=== PATIENT | female | born 1960 | race Caucasian/White ===

== ENCOUNTER 2019-02-19 02:36 | Emergency (ER) | payer MEDICAID ==
[~2019-02-19] VITALS: Ht 170.2 cm; Wt 63.6 kg
[2019-02-19 04:30] VITALS: BP 125/46
[2019-02-19 05:23] LABS: BASOPHILS % (AUTO) 0.3 % (0-1); EOSINOPHILS % (AUTO) 0.1 % (0-6); HEMATOCRIT 40.4 % (35.0-45.0); HEMOGLOBIN 13.4 g/dl (12.0-16.0); LYMPHOCYTES # (AUTO) 0.7 X10'3 (1.1-4.8); LYMPHOCYTES % (AUTO) 6.8 % (21-51); MEAN CORPUSCULAR HEMOGLOBIN 29.9 PG (27.0-31.0); MEAN CORPUSCULAR HGB CONC 33.1 g/dL (33.0-36.5); MEAN CORPUSCULAR VOLUME 90.2 FL (78-98); MEAN PLATELET VOLUME 9.9 FL (7.4-10.4); MONOCYTES # (AUTO) 0.7 X10'3 (0-0.9); MONOCYTES % (AUTO) 6.3 % (2-12); NEUTROPHILS # (AUTO) 9.2 X10'3 (1.8-7.7); NEUTROPHILS % (AUTO) 86.5 % (42-75); PLATELET COUNT 193 X10'3 (140-440); RED BLOOD COUNT 4.48 X10'6 (4.20-5.60); RED CELL DISTRIBUTION WIDTH 14.4 % (11.5-14.5); WHITE BLOOD COUNT 10.6 X10'3 (4.5-11.0)
[2019-02-19 05:36] LABS: ALANINE AMINOTRANSFERASE 68 U/L (12-78); ALBUMIN 3.2 G/DL (3.4-5.0); ALKALINE PHOSPHATASE 69 IU/L (46-116); ANION GAP 10 (8-16); ASPARTATE AMINO TRANSFERASE 69 U/L (10-37); BILIRUBIN,TOTAL 0.6 MG/DL (0.1-1.0); BLOOD UREA NITROGEN 16 MG/DL (7-18); BUN/CREATININE RATIO 28.1 (6.6-38.0); CALCIUM 8.5 MG/DL (8.5-10.1); CHLORIDE 105 MMOL/L (99-107); CREATININE 0.57 MG/DL (0.40-0.90); GLUCOSE 74 MG/DL (70-104); POTASSIUM 3.3 MMOL/L (3.5-5.1); SODIUM 138 MMOL/L (135-145); TOTAL PROTEIN 6.4 G/DL (6.4-8.2); eGFR > 90 ML/MIN
[2019-02-19 05:45] LABS: ETHANOL < 0.010 GM/DL (0.0-0.010)
[2019-02-19 06:01] LABS: ACETAMINOPHEN < 2.0 UG/ML (10-30)
--- NOTE | 2019-02-19 06:01 | NUR ---
APPLIED KEVAN BUSTOS TO PT WHEN SHE GOT INTO ROOM, TEMP IS UP TO 97
--- NOTE | 2019-02-19 06:40 | NUR ---
pt is not in her room, not on unit. security notified, charge nurse aware
--- NOTE | 2019-02-19 09:10 | NUR ---
shirin notified that pt left the hospital, brief description given.
== END 2019-02-19 09:30 | disposition left against medical advice (07) ==
LOC: ER 02:37
DX: R45.851 Suicidal ideations (principal); Z59.0 Homelessness; Z56.0 Unemployment, unspecified
CPT/HCPCS: 36415; 80053; 80320; 80329; 84443; 85025; 99284

== ENCOUNTER 2019-05-27 08:07 | Inpatient (IN) | payer MEDICAID ==
[~2019-05-27] VITALS: Ht 170.2 cm; Wt 70.2 kg
[2019-05-27] MEDS ORDERED: loperamide 2mg capsule PO PRN (08:35)
[2019-05-27] MEDS ORDERED: acetaminophen 325mg tablet PO PRN ×2 (08:35)
[2019-05-27] MEDS ORDERED: mag hydrox/Alum hydrox/simeth 30ml oral suspension PO PRN (08:35)
[2019-05-27] MEDS ORDERED: tuberculin, purif. prot. deriv. 5 units/0.1ml ID ONE (08:35)
[2019-05-27] MEDS ORDERED: hydrOXYzine 25 MG tablet PO PRN (08:35)
[2019-05-27] MEDS ORDERED: LORazepam 1 MG tablet PO PRN (08:35)
[2019-05-27] MEDS ORDERED: NO HOME MEDS PO (08:48)
[2019-05-27 09:19] VITALS: BP 151/85
--- NOTE | 2019-05-27 09:31 | NUR ---
Admission note: This 58 year old female was admitted from [facility] at 0800 hours this am. She arrived in custody of two officers, was searched and wanded for security before allowed on unit. Contreras skin check was performed with no significant findings. Client belongings were searched by [facility] as client claims to be missing a "valuable" ring which was located on initial or secondary search. Client was notified that no ring was located. Vital signs upon admission were, BP 151/84. P= 98, R= 16 and o2 sats were 97% on room air. Client was alert and oriented and was compliant with admission process. Unit orientation provided by staff. Initial nursing assessments are complete. Waiting fo PPD inj. from Pharmacy at this time. Client has no somatic complaints and verbalizes an understanding of all information presented.
--- NOTE | 2019-05-27 13:23 | NUR ---
Nursing Progress note: Client has been social on unit with both staff and peers since admission this am. Patient has required no prn medication as of this writing and seems adjusted to the unit and surroundings. No S/I, H/I, hallucinations or delusions present. Upon 1;1 interview this afternoon, client states that she is doing very well on the unit and feels safe. Client stated, "I just need to pay respect and they will too".
[2019-05-27 20:14] VITALS: BP 120/94
--- NOTE | 2019-05-27 21:29 | NUR ---
Nursing Progress Note:[] Client has been social on unit with both staff and peers since admission this am. Patient has required no prn medication as of this writing and seems adjusted to the unit and surroundings. No S/I, H/I, hallucinations or delusions present. Upon 1;1 interview this afternoon, client states that she is doing very well on the unit and feels safe. Client stated, "I just need to pay respect and they will too". Legal hold:[1370] Client on voluntary/involuntary status for GD Report received from Sofia WILLS nurse with use of SBAR[]. Why are they here:[]. This 58 year old female was admitted from [facility] at 0800 hours this am. She arrived in custody of two officers, was searched and wanded for security before allowed on unit. Contreras skin check was performed with no significant findings. Client belongings were searched by [employer] as client claims to be missing a "valuable" ring which was located on initial or secondary search. Client was notified that no ring was located. Vital signs upon admission were, BP 151/84. P= 98, R= 16 and o2 sats were 97% on room air. Client was alert and oriented and was compliant with admission process. Unit orientation provided by staff. Initial nursing assessments are complete. Waiting fo PPD inj. from Pharmacy at this time. Client has no somatic complaints and verbalizes an understanding of all information presented. Assessment What has happened this shift: Patient isolated to her room this shift. She is social with her room mate S/I, H/I: Denies A/VH: Denies Sleep:[] ADL's: ind Group attendance:[] Were meds taken:No Any med S/E[] Mental Status Exam Appearance:kempt Eye contact:good Behavior: Guarded Speech: Normal Mood: Blunted Affect: Flat Thought process: congruent Thought Content; Cognition:[] Insight: Fair Judgment:Fair Interventions PRN's used:[] Therapeutic interventions:[] Restraints/seclusion/emergency medication:[] Justification of Continued Inpatient Treatment:Pt is GD unable to utilize the resources available to him. He is unable to provide himself with custodial, clothing, or food.
[2019-05-28 07:16] VITALS: BP 133/88
[2019-05-28 07:55] LABS: HEMOGLOBIN A1C 5.8 % (4.5-6.2)
[2019-05-28 08:09] LABS: ALANINE AMINOTRANSFERASE 31 U/L (12-78); ALBUMIN 3.9 G/DL (3.4-5.0); ALKALINE PHOSPHATASE 85 IU/L (46-116); ANION GAP 8 (8-16); ASPARTATE AMINO TRANSFERASE 22 U/L (10-37); BILIRUBIN,TOTAL 0.4 MG/DL (0.1-1.0); BLOOD UREA NITROGEN 15 MG/DL (7-18); BUN/CREATININE RATIO 24.2 (6.6-38.0); CALCIUM 9.1 MG/DL (8.5-10.1); CHLORIDE 108 MMOL/L (99-107); CHOL/HDL RATIO 2.6 (0.00-4.99); CHOLESTEROL 195 MG/DL (0-200); CREATININE 0.62 MG/DL (0.40-0.90); GLUCOSE 83 MG/DL (70-104); HDL CHOLESTEROL 76 MG/DL (35-60); LDL CHOLESTEROL 107 MG/DL (50-100); POTASSIUM 4.1 MMOL/L (3.5-5.1); SODIUM 143 MMOL/L (135-145); TOTAL CARBON DIOXIDE 26.7 MMOL/L (24-32); TOTAL PROTEIN 7.9 G/DL (6.4-8.2); TRIGLYCERIDES 62 MG/DL (20-135); eGFR > 90 ML/MIN
[2019-05-28 09:39] LABS: BASOPHILS % (AUTO) 0.6 % (0-1); EOSINOPHILS % (AUTO) 0.7 % (0-6); HEMATOCRIT 43.1 % (35.0-45.0); HEMOGLOBIN 14.4 g/dl (12.0-16.0); LYMPHOCYTES # (AUTO) 1.6 X10'3 (1.1-4.8); LYMPHOCYTES % (AUTO) 25.1 % (21-51); MEAN CORPUSCULAR HEMOGLOBIN 30.2 PG (27.0-31.0); MEAN CORPUSCULAR HGB CONC 33.3 g/dL (33.0-36.5); MEAN CORPUSCULAR VOLUME 90.6 FL (78-98); MEAN PLATELET VOLUME 10.5 FL (7.4-10.4); MONOCYTES # (AUTO) 0.5 X10'3 (0-0.9); MONOCYTES % (AUTO) 8.6 % (2-12); PLATELET COUNT 183 X10'3 (140-440); RED BLOOD COUNT 4.76 X10'6 (4.20-5.60); WHITE BLOOD COUNT 6.2 X10'3 (4.5-11.0)
[2019-05-28 10:05] LABS: LARGE PLATELETS FEW; PLATELET ESTIMATE NORMAL
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
[2019-05-28 20:00] VITALS: BP 148/76
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
[2019-05-29 07:24] VITALS: BP 119/84
--- NOTE | 2019-05-29 15:33 | NUR ---
NURSING PROGRESS NOTE Client on 1370 involuntary status for GD Report received from Angela WILLS with use of SBAR Why are they here: Ms. Squires is a 58 year old white woman, with a history of psychiatric illness, no acute substance or alcohol use issues who left her marriage of 33 years and came to [place] August 2018. "I was at the parking lot of [employer] [facility] just having come from [facility] and was driving slowly around [employer]'s parking lot. "I wasn't feeling safe". The delivery table operator followed her and she was taken to long term for 3 days. She was hoping to stay with her sister but for unclear reasons her sister asked her to leave and she was left with the mission. "The long term people told me I could get my cell phone at the latter-day so I went back to [place]" and [facility] asked her to leave but ultimately called the Police who took Ms. Squires back to long term. She recalls being jailed 5 times since coming to [place] (several were book and release). It was in February, "my sister had a restraining order and I am not very good with yardage" and I was put in [facility] from February till yesterday. She reports she went into her sister's yard and used the water to clean up. Likely mood, Bipolar d/o, questionably occult psychosis. Assessment What has happened this shift: The patient was up and about on the unit at change of shift. She reports sleeping well. She is "motherly" of her peers and helping others do various things. She is overly friendly and happy incongruent with her circumstances. She denies SI, HI, or any hallucinations. Talks of being hurt and disappointed in her sister and reports the unit to be a nice and safe place "to live." She attends all meals and groups and sometimes isolates to room. She has no scheduled medications and did not require any PRN today. She is incongruent and guarded when answering questions and minimizing her circumstances. No outward signs of psychosis ere seen today. S/I, H/I: Denies A/VH: Denies Sleep:none during the day ADL's: Good, self Group attendance: yes Were meds taken: None ordered Any med S/E: N/A Mental Status Exam Appearance: neat and clean Eye contact: good Behavior: Guarded Speech: Normal Mood: Blunted Affect: animated Thought process: linear Thought Content: feeling safe here Cognition: alert and oriented Insight: poor Judgment: poor Interventions PRN's used: None Therapeutic interventions: established rapport, 1:1 assessment, provided active listening, provided a safe and therapeutic environment, provided reassurance and education, maintained q15m safety checks. Restraints/seclusion/emergency medication: None Justification of Continued Inpatient Treatment: Pt is GD unable to utilize the resources available to her. She is unable to provide himself with jail, clothing, or food.
[2019-05-29 19:29] VITALS: BP 141/88
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
[2019-05-30 07:53] VITALS: BP 134/92
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
[2019-05-30 20:00] VITALS: BP 123/67
--- NOTE | 2019-05-30 23:22 | NUR ---
NURSING PROGRESS NOTE Client on 1370 involuntary status for GD Report received from JOHANN Hargrove with use of SBAR Why are they here: Ms. Squires is a 58 year old white woman, with a history of psychiatric illness, no acute substance or alcohol use issues who left her marriage of 33 years and came to [place] August 2018. "I was at the parking lot of [employer] just having come from [facility] and was driving slowly around [place]'s parking lot. "I wasn't feeling safe". The import/export freight forwarder followed her and she was taken to prison for 3 days. She was hoping to stay with her sister but for unclear reasons her sister asked her to leave and she was left with the [place]. "The prison people told me I could get my cell phone at the congregational so I went back to [place]" and [facility] asked her to leave but ultimately called the Police who took Ms. Squires back to prison. She recalls being jailed 5 times since coming to [place] (several were book and release). It was in February, "my sister had a restraining order and I am not very good with yardage" and I was put in prison from February until yesterday. She reports she went into her sister's yard and used the water to clean up. Likely mood, Bipolar d/o, questionably occult psychosis. Assessment What has happened this shift: Pt was sitting on bed listening to headphones and reading the Bible. Pt's smiled and waved. Pt was later up on the unit visiting with other peers. Pt is cooperative, but when asked any questions pt states "I really don't want to talk about anything right now." "I have been drilled 3 times today." When pushed pt gets a little irritated, pt's face becomes schrader and answerers short yes or no answers. Pt was asked what her [place] [facility] goals were "I want to get my own place and get back the things I lost." Pt disregards on how she plans on doing that. Pt states she can live with her son or a friend she knows in [place]. No specific delusional comments reported. S/I, H/I: Pt denies. None observed A/VH: Pt denies. None observed Sleep: Currently sleeping with no acute distress noted. ADL's: Independent Group attendance: clinic cma, no group Were meds taken: None ordered Any med S/E: N/A Mental Status Exam Appearance: Neat and clean Eye contact: Good Behavior: Cooperative, guarded Speech: Clear, normal rate and rhythm Mood: Pleasant Affect: Constricted with some brightening Thought process: Linear Thought Content: Tired of being "drilled about my life story" Cognition: Alert and oriented Insight: Poor Judgment: Poor Interventions PRN's used: None Therapeutic interventions: Established rapport, 1:1 assessment, provided active listening, provided a safe and therapeutic environment, provided reassurance and education, maintained q15m safety checks. Restraints/seclusion/emergency medication: None Justification of Continued Inpatient Treatment: Pt is GD unable to utilize the resources available to her. She is unable to provide himself with senior care, clothing, or food.
[2019-05-31 08:24] VITALS: BP 132/91
--- NOTE | 2019-05-31 15:25 | NUR ---
NURSING PROGRESS NOTE Client on 1370 involuntary status for GD Report received from JOHANN Aguilar with use of SBAR Why are they here: Ms. Squires is a 58 year old white woman, with a history of psychiatric illness, no acute substance or alcohol use issues who left her marriage of 33 years and came to [place] August 2018. "I was at the parking lot of [employer] just having come from [facility] and was driving slowly around [place] parking lot. "I wasn't feeling safe". The scale agent followed her and she was [facility]. She was hoping to stay with her sister but for unclear reasons her sister asked her to leave and she was left with the [facility]. "The [facility] people told me I could get my cell phone at the [facility] so I went back to [place]" and [facility] asked her to leave but ultimately called the Police who took Ms. Squires back to [facility]. She recalls being jailed 5 times since coming to [place] (several were book and release). It was in February, "my sister had a restraining order and I am not very good with yardage" and I was put in Shelter from February till yesterday. She reports she went into her sister's yard and used the water to clean up. Likely mood, Bipolar d/o, questionably occult psychosis. Assessment What has happened this shift: The patient was awake at change of shift. More subdued today with staff and peers yet still pleasant and smiling. Attended all groups and meals. did not want to talk much with nurse or answer questions. Seems to possibly, becoming more paranoid, avoiding eye contact and being evasive with nurse. Very good at hiding psychosis, but has disorganized thoughts (timelines, circimstances.) No scheduled meds no PRN's needed. S/I, H/I: Denies A/VH: Denies Sleep:none during the day ADL's: Good, self Group attendance: yes Were meds taken: None ordered Any med S/E: N/A Mental Status Exam Appearance: neat and clean Eye contact: good Behavior: WNL Speech: Normal Mood: Pleasant Affect: animated/ happy/ incongruent Thought process: linear Thought Content: feeling safe here Cognition: alert and oriented Insight: very poor Judgment: poor Interventions PRN's used: None Therapeutic interventions: established rapport, 1:1 assessment, provided active listening, provided a safe and therapeutic environment, provided reassurance and education, maintained q15m safety checks. Restraints/seclusion/emergency medication: None Justification of Continued Inpatient Treatment: Pt is GD unable to utilize the resources available to her. She is unable to provide himself with longterm, clothing, or food.
[2019-05-31 20:03] VITALS: BP 148/98
--- NOTE | 2019-05-31 22:37 | NUR ---
NURSING PROGRESS NOTE Client on 1370 involuntary status for GD Report received from JOHANN Hargrove with use of SBAR Why are they here: Ms. Squires is a 58 year old white woman, with a history of psychiatric illness, no acute substance or alcohol use issues who left her marriage of 33 years and came to [place] August 2018. "I was at the parking lot of [place] [employer] just having come from [facility] and was driving slowly around [place]'s parking lot. "I wasn't feeling safe". The shipyard supervisor followed her and she was taken to senior care for 3 days. She was hoping to stay with her sister but for unclear reasons her sister asked her to leave and she was left with the [place]. "The senior care people told me I could get my cell phone at the hinduism so I went back to [place]" and [facility] asked her to leave but ultimately called the Police who took Ms. Squires back to senior care. She recalls being jailed 5 times since coming to [place] (several were book and release). It was in February, "my sister had a restraining order and I am not very good with yardage" and I was put in senior care from February until yesterday. She reports she went into her sister's yard and used the water to clean up. Likely mood, Bipolar d/o, questionably occult psychosis. Assessment What has happened this shift: Pt was walking the halls listening to the headphones at shift change. Pt is seen talking with and helping comfort another pt. Pt has a nurturing quality and is seen on the unit with other patients. Pt avoided conversation with this RN several times. During 1:1 assessment pt opened up about her time in senior care, but would not talk about any personal stuff. Pt denies SI. Pt has no scheduled medications and no PRN's administered. S/I, H/I: Pt denies. None observed A/VH: Pt denies. None observed Sleep: Currently sleeping with no acute distress noted. 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 Cognition: Alert and oriented Insight: Poor Judgment: Poor Interventions PRN's used: None Therapeutic interventions: 1:1 assessment, provided active listening, provided a safe and therapeutic environment, provided reassurance and education, maintained q15m safety checks. Restraints/seclusion/emergency medication: None Justification of Continued Inpatient Treatment: Pt is GD unable to utilize the resources available to her. She is unable to provide himself with long term, clothing, or food.
[2019-06-01 07:50] VITALS: BP 118/79
--- NOTE | 2019-06-01 16:44 | NUR ---
NURSING PROGRESS NOTE: Heydi Squires Client on 1370 involuntary status for GD Report received from JOHANN Aguilar with use of SBAR Why are they here: Ms. Squires is a 58 year old white woman, with a history of psychiatric illness, no acute substance or alcohol use issues who left her marriage of 33 years and came to [place] August 2018. "I was at the parking lot of [employer] just having come from [facility] and was driving slowly around [place]'s parking lot. "I wasn't feeling safe". The carbider followed her and she was taken to senior care for 3 days. She was hoping to stay with her sister but for unclear reasons her sister asked her to leave and she was left with the [place]. "The senior care people told me I could get my cell phone at the buddhist so I went back to [place]" and [place] security asked her to leave but ultimately called the Police who took Ms. Squires back to senior care. She recalls being jailed 5 times since coming to [place] (several were book and release). It was in February, "my sister had a restraining order and I am not very good with yardage" and I was put in senior care from February until yesterday. She reports she went into her sister's yard and used the water to clean up. Likely mood, Bipolar d/o, questionably occult psychosis. Assessment What has happened this shift: Pt. Was up in community room at change of shift. Positive response to this bid writer when introducing myself. Conversation focused on how appreciative she is to have our unit and staff to care for those in crisis. Remained engaged in conversation with others on the unit. No outward signs of paranoia, anxiety, nor depression. When asked why she is here, patient responds "they want to know if I am stable." According to patient was previously diagnosed and treated for schizophrenia. She stopped taking medication in 2016. Patient is helpful with other clients on the unit showing compassion to each person. S/I, H/I: Pt denies. A/VH: Pt denies. Sleep: 6.25 ADL's: Independent Group attendance: Yes Were meds taken: No scheduled medications Any med S/E: N/A Mental Status Exam Appearance: Neat and clean Eye contact: Good Behavior: Cooperative, guarded Speech: Clear, normal rate and rhythm Mood: Pleasant Affect: Congruent with mood Thought process: Linear Thought Content: Cognition: Alert and oriented Insight: Poor Judgment: Poor Interventions PRN's used: None Therapeutic interventions: 1:1 assessment, provided active listening, provided a safe and therapeutic environment, provided reassurance and education, maintained q15m safety checks. Restraints/seclusion/emergency medication: None Justification of Continued Inpatient Treatment: Pt is GD unable to utilize the resources available to her. She is unable to provide himself with detention, clothing, or food.
[2019-06-01 19:55] VITALS: BP 139/83
--- NOTE | 2019-06-01 21:35 | NUR ---
NURSING PROGRESS NOTE: Heydi Squires Client on 1370 involuntary status for GD Report received from JOHANN Hargrove with use of SBAR Why are they here: Ms. Squires is a 58 year old white woman, with a history of psychiatric illness, no acute substance or alcohol use issues who left her marriage of 33 years and came to [place] August 2018. "I was at the parking lot of [employer] just having come from [facility] and was driving slowly around [employer]'s parking lot. "I wasn't feeling safe". The acute care clinical nurse specialist followed her and she was taken to snf for 3 days. She was hoping to stay with her sister but for unclear reasons her sister asked her to leave and she was left with the [place]. "The snf people told me I could get my cell phone at the latter day so I went back to [place]" and [facility] security asked her to leave but ultimately called the Police who took Ms. Squires back to snf. She recalls being jailed 5 times since coming to [place] (several were book and release). It was in February, "my sister had a restraining order and I am not very good with yardage" and I was put in snf from February until yesterday. She reports she went into her sister's yard and used the water to clean up. Likely mood, Bipolar d/o, questionably occult psychosis. Assessment What has happened this shift: Pt. Was up in room at change of shift. Positive response to this bid writer when introducing myself. Conversation focused on how appreciative she is to have our unit and staff to care for those in crisis. Remained engaged in conversation with others on the unit. No outward signs of paranoia, anxiety, nor depression. When asked why she is here, patient responds "they want to know if I am stable." According to patient was previously diagnosed and treated for schizophrenia. She stopped taking medication in 2016. Patient up and social with peers and staff helpful and caring with others. S/I, H/I: Pt denies. A/VH: Pt denies. Sleep: 6.25 ADL's: Independent Group attendance: Yes Were meds taken: No scheduled medications Any med S/E: N/A Mental Status Exam Appearance: Neat and clean Eye contact: Good Behavior: Cooperative, guarded Speech: Clear, normal rate and rhythm Mood: Pleasant Affect: Congruent with mood Thought process: Linear Thought Content: Cognition: Alert and oriented Insight: Poor Judgment: Poor Interventions PRN's used: None Therapeutic interventions: 1:1 assessment, provided active listening, provided a safe and therapeutic environment, provided reassurance and education, maintained q15m safety checks. Restraints/seclusion/emergency medication: None Justification of Continued Inpatient Treatment: Pt is GD unable to utilize the resources available to her. She is unable to provide himself with alf, clothing, or food.
[2019-06-02 08:38] VITALS: BP 148/77
--- NOTE | 2019-06-02 10:58 | NUR ---
Initial: Pt admit w/ psychosis PO 100% regular diet meeting needs. LB 05/30. No nutrition concerns at this time. Addendum: 06/02/19 at [address] Amended: Links added.
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
[2019-06-02 20:00] VITALS: BP_SYST 135; BP_SYST 143; BP_DIAS 83; BP_DIAS 85
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
[2019-06-03 07:58] VITALS: BP 125/84
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
[2019-06-03 20:00] VITALS: BP 157/95
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
[2019-06-04 07:36] VITALS: BP 132/90
[2019-06-04] MEDS ORDERED: haloperidol 10mg/5ml UD oral solution PO PRN (12:30)
[2019-06-04] MEDS ORDERED: LORazepam 1 MG tablet PO ONE (12:30)
[2019-06-04] MEDS ORDERED: haloperidol 10mg/5ml UD oral solution PO ONE (12:30)
[2019-06-04] MEDS ORDERED: LORazepam 1 MG tablet PO PRN (12:30)
[2019-06-04] MEDS ORDERED: LORazepam 2 mg/ml vial IM ONE (13:45)
[2019-06-04] MEDS ORDERED: haloperidol lactate 5mg/ml inj IM ONE (13:45)
--- NOTE | 2019-06-04 15:31 | NUR ---
RN received phone call from pts daughter Olena ([phone]) She reports pts first psychotic break was in 1992, she was hospitalized in [place] for 6 months and dx with Bipolar with psychotic features. During her 1992 hospital stay she was prescribed Haldol which she took for 24 years. 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 Her last hospitalization was January 2018 and she stayed for 3wks. Shortly after discharge she became non-med compliant and did not f/u with care providers leading to multiple incarcerations. Daughter believes they prescribed her Abilify during her last hospitalization. Daughter reports that her mother rarely saw the psychiatrist (once per year) and that medications were often just renewed. She stated that her mother c/o poor sleep with Haldol so she self D/C'd it. After she left her she appeared to have significant issues with feeling controlled as she felt controlled in her relationship with him. Daughter believes it is in the patients best interest to block all communication with ex Wilson Squires.
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
[2019-06-04 20:00] VITALS: BP 143/89
[2019-06-04] MEDS: haloperidol 10mg/5ml UD oral solution PO SCH (20:07)
[2019-06-04] MEDS: LORazepam 1 MG tablet PO SCH (20:07)
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
[2019-06-05 07:38] VITALS: BP 136/87
[2019-06-05] MEDS: haloperidol 10mg/5ml UD oral solution PO SCH ×2 (08:01→20:26)
[2019-06-05] MEDS: LORazepam 1 MG tablet PO SCH ×2 (08:01→20:24)
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
[2019-06-05 20:35] VITALS: BP 134/78
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
[2019-06-06 08:00] VITALS: BP 132/85
[2019-06-06] MEDS: LORazepam 1 MG tablet PO SCH ×2 (08:15→21:26)
[2019-06-06] MEDS: haloperidol 10mg/5ml UD oral solution PO SCH ×2 (08:15→21:26)
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
[2019-06-06 20:00] VITALS: BP 139/87
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
[2019-06-07 07:37] VITALS: BP 141/85
[2019-06-07] MEDS: haloperidol 10mg/5ml UD oral solution PO SCH ×2 (07:57→21:21)
[2019-06-07] MEDS: LORazepam 1 MG tablet PO SCH ×2 (07:57→21:20)
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
[2019-06-07 20:00] VITALS: BP 122/86
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
[2019-06-08 07:36] VITALS: BP 128/79
[2019-06-08] MEDS: LORazepam 1 MG tablet PO SCH ×2 (08:48→20:19)
[2019-06-08] MEDS: haloperidol 10mg/5ml UD oral solution PO SCH ×2 (08:50→20:19)
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
[2019-06-08 19:11] VITALS: BP 130/80
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
[2019-06-09 07:22] VITALS: BP 117/84
--- NOTE | 2019-06-09 07:40 | NUR ---
DISCHARGE PLANNING: Pt completed CLAUDIA for communication regarding discharge planning with Ingrid Ortega . SW will contact Ingrid for discharge planning later in the day.
[2019-06-09] MEDS: haloperidol 10mg/5ml UD oral solution PO SCH ×2 (07:43→20:27)
[2019-06-09] MEDS: LORazepam 1 MG tablet PO SCH ×2 (07:43→20:27)
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
[2019-06-09 19:49] VITALS: BP 130/80
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
[2019-06-10 07:23] VITALS: BP 130/78
[2019-06-10] MEDS: LORazepam 1 MG tablet PO SCH ×2 (07:56→20:21)
[2019-06-10] MEDS: haloperidol 10mg/5ml UD oral solution PO SCH ×2 (07:59→20:21)
--- NOTE | 2019-06-10 12:24 | NUR ---
reassessment: Pt PO 100% regular diet meeting needs. LBM 06/08. No nutrition concerns at this time. Addendum: 06/10/19 at [address] Amended: Links added.
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
--- NOTE | 2019-06-10 15:18 | NUR ---
1:1 DISCHARGE PLANNING: SW met w/ pt to discuss possible discharge to her daughter's home in [place]. Pt reports interest, however states she is concerned that she will not be able to complete legal needs if she leaves [place]. SW informed pt of court ability to have persons appear by phone or video conference. Pt states she will consider this. SW contacted Dr. Lockwood at [facility] to provide possible support system and aftercare treatment for the courts notification. SW requested return contact. Felicita East, Manager Msw [employer] [id number] Supervised by Vini Gaines, [id number]
[2019-06-10 19:18] VITALS: BP 117/93
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
[2019-06-11 07:42] VITALS: BP 120/78
[2019-06-11] MEDS: LORazepam 1 MG tablet PO SCH ×2 (07:55→21:15)
[2019-06-11] MEDS: haloperidol 10mg/5ml UD oral solution PO SCH ×2 (07:57→21:13)
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
[2019-06-11 19:57] VITALS: BP 130/78
[2019-06-11 20:02] VITALS: BP 129/85
--- NOTE | 2019-06-11 20:05 | NUR ---
emsheree 195 VS; correction made 2001
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
--- NOTE | 2019-06-12 08:08 | NUR ---
COLLATERAL/DC PLANNING: SW received return contact from Dr. Lockwood, who reports pt will continue to be worked w/ for [facility] to competency. He reports charges will likely be dismissed once she is restored to competence, then w/ coordination and request by pt a referral can be made to the [facility] to allow a buffer for discharge coordination w/ pt's daughter. If pt were to stay at the [facility] after release from correction it would provide time for pt's daughter to gain access to a plane ticket and assist pt in going to [place] where she has support. SW will inform provider and team of potential collaboration/coordination for pt needs. Per Dr. Lockwood, pt will be evaluated by Dr. Patricia at least one more time before she can be deemed competent. Felicita East, Music Instructor [facility] [id number] Supervised by Vini Gaines, [id number] Addendum: 06/12/19 at 0826 by Felicita East SS Addition to note: Pt's daughter, Ingrid at [phone], reports pt has agreed to come to her home in [place] and begin to re-establish her life. MANDI explained to Ingrid that coordination would need to occur w/ [facility] and [facility], however agreed to coordinate as best this abstract writer can prior to discharge to correction. Felicita East, Music Instructor [employer] WORK[employer] [id number] Supervised by Vini Gaines, [id number] Addendum: 06/12/19 at 1348 by Felicita East SS Addition: Pt signed CLAUDIA for [facility] Delivery Merchandiser. SW contacted Ms. Givens from the Delivery Merchandiser Office, requesting a return contact. End.
[2019-06-12] MEDS: haloperidol 10mg/5ml UD oral solution PO SCH ×2 (08:42→20:12)
[2019-06-12] MEDS: LORazepam 1 MG tablet PO SCH ×2 (08:43→20:09)
[2019-06-12 08:54] VITALS: BP 105/69
[2019-06-12] MEDS ORDERED: benztropine 1mg tablet PO ONE (09:35)
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
[2019-06-12 19:39] VITALS: BP 112/83
[2019-06-12] MEDS: benztropine 1mg tablet PO SCH (20:07)
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
[2019-06-13 08:00] VITALS: BP 117/71
[2019-06-13] MEDS: benztropine 1mg tablet PO SCH ×2 (08:47→20:11)
[2019-06-13] MEDS: LORazepam 1 MG tablet PO SCH ×2 (08:47→20:11)
[2019-06-13] MEDS: haloperidol 10mg/5ml UD oral solution PO SCH ×2 (08:47→20:13)
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
[2019-06-13 19:56] VITALS: BP 128/80
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
[2019-06-14] MEDS: haloperidol 10mg/5ml UD oral solution PO SCH ×2 (07:48→20:16)
[2019-06-14] MEDS: LORazepam 1 MG tablet PO SCH ×2 (07:49→20:16)
[2019-06-14] MEDS: benztropine 1mg tablet PO SCH ×2 (07:49→20:16)
[2019-06-14 08:00] VITALS: BP 99/61
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
[2019-06-14 20:00] VITALS: BP 124/81
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
[2019-06-15 08:00] VITALS: BP 129/69
[2019-06-15] MEDS: benztropine 1mg tablet PO SCH ×2 (08:43→20:29)
[2019-06-15] MEDS: haloperidol 10mg/5ml UD oral solution PO SCH ×2 (08:44→20:29)
[2019-06-15] MEDS: LORazepam 1 MG tablet PO SCH ×2 (08:44→20:30)
--- NOTE | 2019-06-15 14:30 | NUR ---
DISCHARGE PLANNING: SW received TC from pt's daughter, Ingrid, who reports she has purchased plane tickets to attend pt court hearing and fly pt back to [place] once released from [facility] custody. She states she has linked pt to [facility] for mental health tx and plans to write up a contract regarding tx, once pt returns to her home w/ her. SW agreed to inform [facility] of this plan and the tx team at [facility]. Felicita East, Knowledge Management Consultant CUSTOMER SUCCESS INTERN [id number] Supervised by Vini Gaines, [id number]
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
[2019-06-15 19:57] VITALS: BP 123/80
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
[2019-06-16 07:36] VITALS: BP 99/66
[2019-06-16] MEDS: LORazepam 1 MG tablet PO SCH ×2 (08:41→20:46)
[2019-06-16] MEDS: benztropine 1mg tablet PO SCH ×2 (08:42→20:47)
[2019-06-16] MEDS: haloperidol 10mg/5ml UD oral solution PO SCH ×2 (08:43→20:47)
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
[2019-06-16 20:01] VITALS: BP 128/78
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
[2019-06-17 07:36] VITALS: BP 104/66
[2019-06-17] MEDS: haloperidol 10mg/5ml UD oral solution PO SCH ×2 (08:18→20:47)
[2019-06-17] MEDS: benztropine 1mg tablet PO SCH ×2 (08:18→20:47)
[2019-06-17] MEDS: LORazepam 1 MG tablet PO SCH ×2 (08:18→20:47)
--- NOTE | 2019-06-17 15:17 | NUR ---
reassessment: Pt PO 75-100% regular diet meeting needs. LBM 06/17. No nutrition concerns at this time. Recommend: 1. continue regular diet 2. weekly wts Addendum: 06/17/19 at [address] Amended: Links added.
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
[2019-06-17 20:00] VITALS: BP 119/85
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
[2019-06-18 08:00] VITALS: BP 114/64
[2019-06-18] MEDS: haloperidol 10mg/5ml UD oral solution PO SCH ×2 (08:26→20:45)
[2019-06-18] MEDS: benztropine 1mg tablet PO SCH ×2 (08:26→20:45)
[2019-06-18] MEDS: LORazepam 1 MG tablet PO SCH ×2 (08:26→20:45)
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
[2019-06-18 19:41] VITALS: BP 122/76
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
[2019-06-19 07:52] VITALS: BP 105/77
[2019-06-19] MEDS: LORazepam 1 MG tablet PO SCH (08:07)
[2019-06-19] MEDS: benztropine 1mg tablet PO SCH ×2 (08:08→20:07)
[2019-06-19] MEDS: haloperidol 10mg/5ml UD oral solution PO SCH ×2 (08:08→20:07)
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
[2019-06-19 19:00] VITALS: BP 147/79
[2019-06-19] MEDS: LORazepam 0.5 MG tablet PO SCH (20:07)
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
[2019-06-20 07:57] VITALS: BP 115/81
[2019-06-20] MEDS: LORazepam 0.5 MG tablet PO SCH ×2 (08:25→20:16)
[2019-06-20] MEDS: benztropine 1mg tablet PO SCH ×2 (08:25→20:16)
[2019-06-20] MEDS: haloperidol 10mg/5ml UD oral solution PO SCH ×2 (08:26→20:17)
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
[2019-06-20 19:00] VITALS: BP 128/83
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
[2019-06-21 07:31] VITALS: BP 120/67
[2019-06-21] MEDS: benztropine 1mg tablet PO SCH ×2 (08:18→20:22)
[2019-06-21] MEDS: LORazepam 0.5 MG tablet PO SCH ×2 (08:18→20:22)
[2019-06-21] MEDS: haloperidol 10mg/5ml UD oral solution PO SCH ×2 (08:18→20:22)
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
[2019-06-21 19:40] VITALS: BP 111/79
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
[2019-06-22 08:00] VITALS: BP 115/67
[2019-06-22] MEDS: haloperidol 10mg/5ml UD oral solution PO SCH ×2 (08:11→20:36)
[2019-06-22] MEDS: LORazepam 0.5 MG tablet PO SCH ×2 (08:11→20:35)
[2019-06-22] MEDS: benztropine 1mg tablet PO SCH ×2 (08:11→20:35)
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
[2019-06-22 19:44] VITALS: BP 112/71
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
[2019-06-23 07:35] VITALS: BP 117/80
[2019-06-23] MEDS: LORazepam 0.5 MG tablet PO SCH ×2 (08:20→20:32)
[2019-06-23] MEDS: benztropine 1mg tablet PO SCH ×2 (08:20→20:32)
[2019-06-23] MEDS: haloperidol 10mg/5ml UD oral solution PO SCH ×2 (08:20→20:32)
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
[2019-06-23 20:24] VITALS: BP 120/83
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
[2019-06-24 07:22] VITALS: BP 114/74
[2019-06-24] MEDS: benztropine 1mg tablet PO SCH ×2 (08:14→20:32)
[2019-06-24] MEDS: LORazepam 0.5 MG tablet PO SCH ×2 (08:14→20:32)
[2019-06-24] MEDS: haloperidol 10mg/5ml UD oral solution PO SCH (08:14)
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
[2019-06-24] MEDS: haloperidol 1mg tablet PO SCH (20:32)
[2019-06-24 20:48] VITALS: BP 125/68
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
[2019-06-25 07:00] VITALS: BP 104/73
[2019-06-25 08:00] VITALS: BP 104/73
[2019-06-25] MEDS: LORazepam 0.5 MG tablet PO SCH ×2 (08:39→20:03)
[2019-06-25] MEDS: haloperidol 1mg tablet PO SCH ×2 (08:39→20:03)
[2019-06-25] MEDS: benztropine 1mg tablet PO SCH ×2 (08:39→20:03)
--- NOTE | 2019-06-25 15:14 | NUR ---
reassessment: Pt PO 75-100% regular diet meeting needs. LBM 06/24, smear for past two days, patient does have milk of donnell bedoya, not given yet, attempted call to RN regarding BM. Will continue to follow. Recommend: 1. continue regular diet 2. weekly wts 3. bowel care as needed. Addendum: 06/25/19 at [address] Amended: Links added.
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
[2019-06-25 20:27] VITALS: BP 107/80
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
[2019-06-26 08:00] VITALS: BP 113/64
[2019-06-26] MEDS ORDERED: haloperidol 10mg/5ml UD oral solution PO SCH ×2 (08:08→08:14)
[2019-06-26] MEDS: LORazepam 0.5 MG tablet PO SCH ×2 (08:53→20:48)
[2019-06-26] MEDS: benztropine 1mg tablet PO SCH ×2 (08:53→20:49)
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
[2019-06-26 19:49] VITALS: BP 124/77
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
[2019-06-27] MEDS: aripiprazole 5mg tablet PO SCH (08:16)
[2019-06-27] MEDS: benztropine 1mg tablet PO SCH ×2 (08:16→20:35)
[2019-06-27] MEDS: LORazepam 0.5 MG tablet PO SCH ×2 (08:16→20:35)
[2019-06-27 08:46] VITALS: BP 122/74
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
[2019-06-27 19:24] VITALS: BP 124/75
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
[2019-06-28 08:27] VITALS: BP 105/66
[2019-06-28] MEDS: LORazepam 0.5 MG tablet PO SCH ×2 (08:31→20:15)
[2019-06-28] MEDS: benztropine 1mg tablet PO SCH ×2 (08:31→20:15)
[2019-06-28] MEDS: aripiprazole 5mg tablet PO SCH (08:32)
[2019-06-28 19:49] VITALS: BP 124/75
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
[2019-06-29 07:40] VITALS: BP 112/72
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
[2019-06-29] MEDS: benztropine 1mg tablet PO SCH ×2 (08:16→20:24)
[2019-06-29] MEDS: LORazepam 0.5 MG tablet PO SCH ×2 (08:16→20:24)
[2019-06-29] MEDS: aripiprazole 5mg tablet PO SCH (08:16)
[2019-06-29 19:56] VITALS: BP 118/67
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
[2019-06-30 08:00] VITALS: BP 106/60
[2019-06-30] MEDS: aripiprazole 5mg tablet PO SCH (08:42)
[2019-06-30] MEDS: benztropine 1mg tablet PO SCH (08:43)
[2019-06-30] MEDS: LORazepam 0.5 MG tablet PO SCH ×2 (08:43→20:36)
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
[2019-06-30 20:22] VITALS: BP 119/72
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
[2019-07-01] MEDS: magnesium hydroxide 30ml (MOM) UD suspension PO PRN (04:59)
--- NOTE | 2019-07-01 04:59 | NUR ---
pt awake walking the halls. pt. requesting MOM.
[2019-07-01 07:33] VITALS: BP 125/70
[2019-07-01] MEDS: LORazepam 0.5 MG tablet PO SCH ×2 (08:25→19:54)
[2019-07-01] MEDS: aripiprazole 5mg tablet PO SCH (08:25)
[2019-07-01] MEDS: benztropine 1mg tablet PO SCH (08:26)
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
[2019-07-01 20:24] VITALS: BP 118/79
--- NOTE | 2019-07-01 23:20 | NUR ---
Nursing Progress Note: One to one with the patient to assess severity of disordered thought processes. She has been on q 15 minute safety checks and has not demonstrated any bizarre or disruptive behaviors on the unit. She was very friendly when approached for the evening the assessment. She appeared calm and she was well groomed and appropriately dressed. She reports that she slept well last night. She was asked about side effects to medications and she stated that she felt she was slightly constipated but had had a small bowel movement earlier in the day. She denies any thoughts to harm herself or others. She denies psychotic symptoms and none were evident during during the evening assessment. She reports her concentration and focus were "not bad" She denies racing thoughts. She denies anxiety. She reports that her mood is good. She stated that she feels ready to go to court. She stated that after clearing up her court matters she will be moving to [place] to live with her daughter. She socializes well with peers.
--- NOTE | 2019-07-02 08:10 | NUR ---
COURT 07/04 AT 0830. WILL BE PICKED UP BY [facility]. PH NUMBER [phone]. PATIENT NEEDS TO BE FULLY DC'D, WILL BE GOING W/DAUGHTER OUT OF STATE AFTER COURT.
[2019-07-02 08:15] VITALS: BP 141/75
[2019-07-02] MEDS: LORazepam 0.5 MG tablet PO SCH ×2 (08:26→19:58)
[2019-07-02] MEDS: aripiprazole 5mg tablet PO SCH (08:26)
[2019-07-02] MEDS: benztropine 1mg tablet PO SCH (08:26)
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
[2019-07-02] MEDS: magnesium hydroxide 30ml (MOM) UD suspension PO PRN (19:06)
[2019-07-02 19:51] VITALS: BP 119/80
--- NOTE | 2019-07-02 22:16 | NUR ---
Nursing Progress Note: One to one with the patient to assess severity of mental health symptoms. The patient was friendly and cooperative when approached for the evening assessment. She appeared well groomed and appropriately dressed. Her affect was appropriate to her circumstances. She is friendly and social with peers. She has been treatment and medication compliant. She does report feeling constipated at this time from the medications and was given MOM. She denied having any other side effects to medications. She stated that she felt ready for her court date and she denied having racing thoughts and she felt her thoughts were clear. She stated her mood overall was "very good" She denied anxiety. She stated that she has been sleeping well at night and that her appetite had been very good. There is no evidence of being distracted by internal stimuli. She is making appropriate discharge plans after she has completed the court process. Her next court date reportedly is this coming Sunday.
[2019-07-03 07:32] VITALS: BP 119/75
--- NOTE | 2019-07-03 07:49 | NUR ---
COLLATERAL CONTACT: MANDI made TC to pt's daughter, Ingrid Ortega, , who reports she will be in [place] by 14:30 this day for a meeting w/ pt and SW. Ingrid reports she will be attending court w/ pt and has arranged for pt to return to [place] w/ her. She states she has coordinated w/ [facility] and the courts have been made aware of this plan. SW agreed to coordinate a special visit w/ pt and her daughter. Felicita East, [employer] Operator WORKER'S COMPENSATION CLAIMS EXAMINER [id number] Supervised by Vini Gaines, [id number]
[2019-07-03] MEDS: benztropine 1mg tablet PO SCH ×2 (08:24→21:00)
[2019-07-03] MEDS: aripiprazole 5mg tablet PO SCH (08:24)
[2019-07-03] MEDS: LORazepam 0.5 MG tablet PO SCH ×2 (08:24→21:00)
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
[2019-07-03] MEDS ORDERED: ARIP5TAB60 PO (11:00)
[2019-07-03] MEDS ORDERED: BENZ1TAB7 PO (11:03)
--- NOTE | 2019-07-03 11:13 | NUR ---
Reassessment: Patient continues meeting nutrient needs with 75-100% PO intake. Steady increase in wt over admission, currently +3 kg since admit. LBM 07/03 documented as small, previously smears. Pt with MoM PRN given 07/01 and 07/02. Per MD note pt denies any issues with constipation at this time. Will continue to follow. Recommend: 1. continue regular diet 2. weekly wts 3. bowel care as needed. Addendum: 07/03/19 at [address] Amended: Links added.
[2019-07-03 20:00] VITALS: BP 134/76
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
[2019-07-04 07:19] VITALS: BP 120/79
[2019-07-04] MEDS: benztropine 1mg tablet PO SCH ×2 (08:17→20:42)
[2019-07-04] MEDS: LORazepam 0.5 MG tablet PO SCH ×2 (08:17→20:42)
[2019-07-04] MEDS: aripiprazole 5mg tablet PO SCH (08:17)
--- NOTE | 2019-07-04 08:57 | NUR ---
Heydi has not yet been picked up for court, called phone number that was given [phone], there was a message to call another phone [phone]. LVM on that number to call back. Spoke with [facility] office who report that the person who arranged transport is not there today. Spoke with Xander Cruz who reports that he is aware that patient has court today and that transportation was arranged by [facility] in conjunction with retirement transport. He reports that he will try to figure out what is going on and will call us back.
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
[2019-07-04 19:41] VITALS: BP 113/66
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
[2019-07-05 07:12] VITALS: BP 132/84
[2019-07-05] MEDS: benztropine 1mg tablet PO SCH ×2 (08:06→20:55)
[2019-07-05] MEDS: aripiprazole 5mg tablet PO SCH (08:06)
[2019-07-05] MEDS: LORazepam 0.5 MG tablet PO SCH ×2 (08:06→20:55)
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
[2019-07-05 19:30] VITALS: BP 128/78
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
[2019-07-06] MEDS: magnesium hydroxide 30ml (MOM) UD suspension PO PRN (04:41)
[2019-07-06 08:00] VITALS: BP 113/75
[2019-07-06] MEDS: LORazepam 0.5 MG tablet PO SCH ×2 (08:47→20:56)
[2019-07-06] MEDS: benztropine 1mg tablet PO SCH ×2 (08:47→20:56)
[2019-07-06] MEDS: aripiprazole 5mg tablet PO SCH (08:47)
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
[2019-07-06 19:57] VITALS: BP 117/74
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
[2019-07-07] MEDS: LORazepam 0.5 MG tablet PO SCH ×2 (07:44→20:26)
[2019-07-07] MEDS: aripiprazole 5mg tablet PO SCH (07:44)
[2019-07-07] MEDS: benztropine 1mg tablet PO SCH ×2 (07:44→20:26)
[2019-07-07] MEDS: magnesium hydroxide 30ml (MOM) UD suspension PO PRN (07:45)
[2019-07-07 08:00] VITALS: BP 115/75
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
[2019-07-07 20:00] VITALS: BP 128/74
[2019-07-07 20:56] VITALS: BP 126/74
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
[2019-07-08 07:23] VITALS: BP 137/84
[2019-07-08] MEDS: LORazepam 0.5 MG tablet PO SCH (07:31)
[2019-07-08] MEDS: aripiprazole 5mg tablet PO SCH (07:31)
[2019-07-08] MEDS: benztropine 1mg tablet PO SCH (07:31)
--- NOTE | 2019-07-08 08:55 | NUR ---
NURSING DISCHARGE NOTE: Patient discharged from unit at 0757. She left the unit ambulatory and accompanied by Sofia WILLS. She will be transported via [facility] services delivery driver to [facility] for court appearance. Patient has plans to travel with Daughter Ingrid to [place] to live. No S&S of distress observed. Patient has improved since admit. Discharge instructions given to patient and patient provided opportunity to ask questions. Patients possessions inventoried with [employer], all possessions taken with patient. Patient does not need nicotine replacement as she is not a smoker.
== END 2019-07-08 07:57 | disposition short-term general hospital (02) | DRG 750 ==
LOC: ADULT MH 08:07
PROVIDERS: ADMIT Psychiatry & Neurology Psychiatry; ATTEND Psychiatry & Neurology Psychiatry
DX: F25.0 Schizoaffective disorder, bipolar type (principal); F34.9 Persistent mood [affective] disorder, unspecified; I10 Essential (primary) hypertension; Z59.0 Homelessness; Z91.14 Patient's other noncompliance with medication regimen
CPT/HCPCS: 36415; 80053; 80061; 83036; 84443; 85025; 87081; 99285